=== PATIENT | male | born 1970 | race African-American/Black ===

== ENCOUNTER 2017-01-18 21:41 | Emergency (ER) | payer MEDICAID ==
[~2017-01-18 21:41] MED LIST: DYAZIDE 37.5/251 CAP PO; INVEGA6 MG/BLIST PO; TALWIN NX1 TAB PO
== END 2017-01-18 22:40 | disposition home or self-care (01) ==
LOC: D.ER 21:41
DX: S00.12XA Contusion of left eyelid and periocular area, initial encounter (principal); V89.2XXA Person injured in unspecified motor-vehicle accident, traffic, initial encounter; Y93.89 Activity, other specified; Y92.89 Other specified places as the place of occurrence of the external cause; S05.02XA Injury of conjunctiva and corneal abrasion without foreign body, left eye, initial encounter; F32.9 Major depressive disorder, single episode, unspecified; I10 Essential (primary) hypertension

== ENCOUNTER 2017-03-05 23:03 | Emergency (ER) | payer MEDICAID | END 2017-03-06 10:25 | disposition home or self-care (01) | LOC: D.ER 23:03 | DX: S01.81XA Laceration without foreign body of other part of head, initial encounter (principal); Y04.2XXA Assault by strike against or bumped into by another person, initial encounter; Y93.89 Activity, other specified; Y92.89 Other specified places as the place of occurrence of the external cause; I10 Essential (primary) hypertension; F32.9 Major depressive disorder, single episode, unspecified ==

== ENCOUNTER 2017-03-13 11:47 | Emergency (ER) | payer MEDICAID | END 2017-03-13 12:51 | disposition home or self-care (01) | LOC: D.ER 11:47 | DX: S01.81XD Laceration without foreign body of other part of head, subsequent encounter (principal); X58.XXXD Exposure to other specified factors, subsequent encounter; Y92.89 Other specified places as the place of occurrence of the external cause; Z48.02 Encounter for removal of sutures; I10 Essential (primary) hypertension ==

== ENCOUNTER 2018-03-05 07:21 | Emergency (ER) | payer MEDICAID | END 2018-03-05 08:20 | disposition home or self-care (01) | LOC: D.ER 07:21 | DX: L02.412 Cutaneous abscess of left axilla (principal); I10 Essential (primary) hypertension; F17.200 Nicotine dependence, unspecified, uncomplicated ==

== ENCOUNTER 2020-04-02 22:10 | Emergency (ER) | payer MEDICAID ==
[~2020-04-02] VITALS: Ht 177.8 cm; Wt 101.8 kg
[2020-04-02 22:15] VITALS: BP 126/85; Ht 177.8 cm; Wt 101.8 kg
== END 2020-04-02 23:17 | disposition home or self-care (01) ==
LOC: D.ER 22:10
DX: S16.1XXA Strain of muscle, fascia and tendon at neck level, initial encounter (principal); V89.2XXA Person injured in unspecified motor-vehicle accident, traffic, initial encounter; Y93.9 Activity, unspecified; Y92.9 Unspecified place or not applicable; I10 Essential (primary) hypertension; Z72.0 Tobacco use; M54.2 Cervicalgia; M54.5 Low back pain